=== PATIENT | male | born 1995 | race Caucasian/White ===

== ENCOUNTER 2024-06-09 19:33 | Emergency (ER) | payer MEDICARE, MEDICAID, SELFPAY ==
[2024-06-09 19:44] VITALS: BP 179/103; PULSE 82; TEMP 36.9; O2SAT 98; BMI 25.8
--- NOTE | 2024-06-09 19:59 | ED_ITS ---
HPI HPI - General Adult General Chief complaint: Upper Respiratory Infection Stated complaint: Upper Respiratory Infection Time Seen by Provider: 06/09/24 19:39 Source: patient Mode of arrival: walk-in Limitations: no limitations History of Present Illness HPI narrative: 29-year-old male presents to the emergency department for nasal congestion and headache. He thinks he might have a sinus infection. He does not complain of ear pain or sore throat. No vomiting or diarrhea. His roommate does not have the same symptoms. Related Data Previous Rx's ?Medication ?Instructions ?Recorded amoxicillin 500 mg capsule 500 mg PO TID 10 days #30 caps 06/09/24 loratadine 5 mg-pseudoephedrine ER 1 tab PO Q12H PRN nasal congestion 06/09/24 120 mg tablet,extended #20 tabs release,12hr (Claritin-D 12 Hour) Allergies Allergy/AdvReac Type Severity Reaction Status Date / Time No Known Drug Allergies Allergy Verified 06/09/24 19:44 Opioid HPI Opioid Management Most Recent Opioid Data: No Data to Display Review of Systems ROS Narrative A ten point review of systems is negative except as noted above. PFSH PFSH Social History Little interest or pleasure in doing things: not at all Feeling down, depressed, or hopeless: not at all Exam Narrative Exam Narrative: Nurses note and vital signs reviewed and patient is not hypoxic. General: The patient appears in no apparent distress. Patient is resting comfortably on cart. Skin: Warm, dry, no pallor noted. There is no rash noted. Head: Normocephalic, atraumatic Eye: Normal conjunctiva, no drainage Ears, Nose, Mouth, and Throat: oral mucosa is moist. Nares patent. Mouth without vesicles. No pharyngeal erythema Cardiovascular: Regular Rate and Rhythm, not tachycardic Respiratory: Patient is in no distress, no accessory muscle use, lungs are clear to auscultation, no wheezing, rales or rhonchi Back: non-tender GI: Soft and nontender Musculoskeletal: The patient has no evidence of calf tenderness, no pitting edema, symmetrical pulses noted bilaterally Neurological: A&O, normal speech Psychiatric: Cooperative Constitutional Vital Signs, click to edit/add: Last Vital Signs Temp 98.4 F 06/09/24 19:44 Pulse 82 06/09/24 19:44 Resp 18 06/09/24 19:44 BP 179/103 H 06/09/24 19:44 Pulse Ox 98 06/09/24 19:44 O2 Del Method Room Air 06/09/24 19:44 Course Vital Signs Vital signs: Vital Signs Temperature 98.4 F 06/09/24 19:44 Pulse Rate 82 06/09/24 19:44 Respiratory Rate 18 06/09/24 19:44 Blood Pressure 179/103 H 06/09/24 19:44 Pulse Oximetry 98 06/09/24 19:44 Oxygen Delivery Method Room Air 06/09/24 19:44 Temperature 98.4 F 06/09/24 19:44 Pulse Rate 82 06/09/24 19:44 Respiratory Rate 18 06/09/24 19:44 Blood Pressure 179/103 H 06/09/24 19:44 Pulse Oximetry 98 06/09/24 19:44 Oxygen Delivery Method Room Air 06/09/24 19:44 Medical Decision Making MDM Narrative Medical decision making narrative: The patient is convinced he has a sinus infection. He will be placed on amoxicillin and decongestants. Treatment diagnosis and follow-up were discussed with the patient. Differential Diagnosis Differential Diagnosis: URI, sinusitis Discharge Plan Discharge Chief Complaint: Upper Respiratory Infection Clinical Impression: Upper respiratory infection Patient Disposition: Home, Self-Care Time of Disposition Decision: 19:58 Condition: Good Mode of Transportation: Private Vehicle Prescriptions / Home Meds: New amoxicillin 500 mg capsule 500 mg PO TID 10 Days Qty: 30 0RF Claritin-D 12 Hour 5-120 mg tablet extended release 12 hr 1 tab PO Q12H PRN (Reason: nasal congestion) Qty: 20 0RF Print Language: Setswana Instructions: Upper Respiratory Infection (ED) Referrals: Physician,Non-Staff, MD [Primary Care Provider] - 1 week
[2024-06-09] MEDS: AMOXICILLIN 500 MG CAPSULE PO (20:12)
== END 2024-06-09 20:16 | disposition home or self-care (01) ==
PROVIDERS: Emergency Provider Emergency Medicine
DX: J06.9 Acute upper respiratory infection, unspecified (principal)
CPT/HCPCS: 99283